=== PATIENT | male | born 1980 | race African-American/Black ===

== ENCOUNTER 2017-04-18 08:34 | Emergency (ER) | payer SELFPAY ==
[~2017-04-18] VITALS: Ht 180.3 cm; Wt 115.0 kg
[2017-04-18 08:42] VITALS: BP 141/70; PULSE 84; RESP 17; TEMP 98.5; O2SAT 100
[2017-04-18 09:13] VITALS: BP 133/81; PULSE 69; RESP 22; O2SAT 98
[2017-04-18 09:35] LABS: AUTOMATED NEUTROPHIL # 5.3 TH/MM3 (1.8-7.7); BASOPHIL # 0.1 TH/MM3 (0-0.2); BASOPHIL % 0.7 % (0.0-2.0); EOSINOPHIL # 0.3 TH/MM3 (0-0.4); EOSINOPHIL % 2.9 % (0.0-4.0); HEMATOCRIT 37.6 % (39.0-51.0); HEMOGLOBIN 12.8 GM/DL (13.0-17.0); LYMPH % 27.1 % (9.0-44.0); LYMPHOCYTE # 2.4 TH/MM3 (1.0-4.8); MEAN CELL VOLUME 91.6 FL (80.0-100.0); MEAN CORPUSCULAR HEMOGLOBIN 31.2 PG (27.0-34.0); MEAN CORPUSCULAR HGB CONC 34.1 % (32.0-36.0); MEAN PLATELET VOLUME 8.5 FL (7.0-11.0); MONO % 9.7 % (0.0-8.0); MONOCYTE # 0.9 TH/MM3 (0-0.9); NEUT % 59.6 % (16.0-70.0); PLATELET COUNT 232 TH/MM3 (150-450); RED BLOOD COUNT 4.11 MIL/MM3 (4.50-5.90); RED CELL DISTRIBUTION WIDTH 12.9 % (11.6-17.2); WHITE BLOOD COUNT 8.9 TH/MM3 (4.0-11.0)
--- NOTE | 2017-04-18 09:35 | RADRPT ---
EXAM DATE/TIME: 04/18/2017 09:15 [place] COMPARISON: No previous studies available for comparison. INDICATIONS : Short of breath, mild chest pain, and cold symptoms for 3 days MEDICAL HISTORY : None. SURGICAL HISTORY : None. ENCOUNTER: Initial ACUITY: 3 days PAIN SCORE: 2/10 LOCATION: Bilateral chest FINDINGS: A single view of the chest demonstrates the lungs to be symmetrically aerated without evidence of mas s, infiltrate or effusion. The cardiomediastinal contours are unremarkable. Osseous structures are intact. CONCLUSION: Normal examination. Moses Garcia MD on April 18, 2017 at 9:34 Board Certified Radiologist. This report was verified electronically.
[2017-04-18 09:56] LABS: BICARBONATE 28.2 MEQ/L (21.0-32.0); BLOOD UREA NITROGEN 7 MG/DL (7-18); CALCIUM 8.5 MG/DL (8.5-10.1); CHLORIDE 106 MEQ/L (98-107); CREATININE 0.75 MG/DL (0.60-1.30); GLOMERULAR FILTRATION RATE 118 ML/MIN (>89); GLUCOSE,RANDOM 207 MG/DL (74-106); SODIUM (NA) 142 MEQ/L (136-145)
[2017-04-18 10:00] LABS: TROPONIN I LESS THAN 0.02 NG/ML (0.02-0.05)
[2017-04-18] MEDS ORDERED: AZIT250T3 PO (10:40)
[2017-04-18] MEDS ORDERED: ALBUAER3 INH (10:40)
[2017-04-18] MEDS ORDERED: PRED20 PO (10:40)
--- NOTE | 2017-04-18 10:41 | PD ---
HPI Chief Complaint: Cardiac Complaint Time Seen by Provider: 09:58 Travel History International Travel<30 days: No Contact w/Intl Traveler<30days: No Traveled to known affect area: No History of Present Illness HPI 36 yo male had to depart work secondary to dyspnea. He reports a history of bronchitis. He reports some chest heaviness. No paresthesia or radiation of discomfort. No fever/chills. Duration about one day. No exertional or pleuritic component. No personal history coronary disease, HTN, DM or HLD. Pt smokes tobacco. PFSH Past Medical History Medical History: Denies Significant Hx Diminished Hearing: No Past Surgical History Surgical History: No Previous Surgery Social History Alcohol Use: Yes (SOCIALLY) Tobacco Use: Yes (1 PPD) Substance Use: Yes (MARIJUANA) Allergies-Medications (Allergen,Severity, Reaction): Coded Allergies: No Known Allergies (Unverified , 04/18/17) Reported Meds & Prescriptions Reported Meds & Active Scripts Active Prednisone 20 Mg Tab 40 Mg PO DAILY 5 Days Take 40 mg (2 tablets) daily for 5 days Proair Hfa 8.5 GM Inh (Albuterol Sulfate) 90 Mcg/Act Aer 2 Puff INH Q4-6H PRN 108 mcg/actuation Azithromycin 250 Mg Tab 250 Mg PO DIRECTED Take 2 tabs (500 mg) on day 1 then 1 tab daily x 4 days. Review of Systems Except as stated in HPI: all other systems reviewed are Neg General / Constitutional: No: Fever Physical Exam Narrative GENERAL: 36 you male resting comfortably on his bed Vital Signs Date Time Temp Pulse Resp B/P (MAP) Pulse Ox O2 Delivery O2 Flow Rate FiO2 04/18/17 11:24 04/18/17 11:05 73 14 135/80 (98) 100 Room Air 04/18/17 09:13 69 22 133/81 (98) 98 Room Air 04/18/17 08:42 98.5 84 17 141/70 (93) 100 SKIN: Warm and dry. HEAD: Atraumatic. Normocephalic. EYES: Pupils equal and round. No scleral icterus. No injection or drainage. ENT: No nasal bleeding or discharge. Mucous membranes pink and moist. NECK: Trachea midline. No JVD. CARDIOVASCULAR: Regular rate and rhythm. RESPIRATORY: No accessory muscle use. Clear to auscultation. Breath sounds equal bilaterally. GASTROINTESTINAL: Abdomen soft, non-tender, nondistended. Hepatic and splenic margins not palpable. MUSCULOSKELETAL: Extremities without clubbing, cyanosis, or edema. No obvious deformities. NEUROLOGICAL: Awake and alert. No obvious cranial nerve deficits. Motor grossly within normal limits. Five out of 5 muscle strength in the arms and legs. Normal speech. PSYCHIATRIC: Appropriate mood and affect; insight and judgment normal. Data Data Last Documented VS Vital Signs Date Time Temp Pulse Resp B/P (MAP) Pulse Ox O2 Delivery O2 Flow Rate FiO2 04/18/17 11:24 04/18/17 11:05 73 14 100 Room Air 04/18/17 08:42 98.5 Orders Orders Electrocardiogram (04/18/17 09:09) Complete Blood Count With Diff (04/18/17 09:09) Basic Metabolic Panel (Bmp) (04/18/17 09:09) Ckmb (Isoenzyme) Profile (04/18/17 09:09) Troponin I (04/18/17 09:09) Chest, Single Ap (04/18/17 09:09) Iv Access Insert/Monitor (04/18/17 09:09) CKMB (04/18/17 09:15) CKMB% (04/18/17 09:15) Ed Discharge Order (04/18/17 10:41) Labs Laboratory Tests Test 04/18/17 09:15 White Blood Count 8.9 TH/MM3 Red Blood Count 4.11 MIL/MM3 Hemoglobin 12.8 GM/DL Hematocrit 37.6 % Mean Corpuscular Volume 91.6 FL Mean Corpuscular Hemoglobin 31.2 PG Mean Corpuscular Hemoglobin Concent 34.1 % Red Cell Distribution Width 12.9 % Platelet Count 232 TH/MM3 Mean Platelet Volume 8.5 FL Neutrophils (%) (Auto) 59.6 % Lymphocytes (%) (Auto) 27.1 % Monocytes (%) (Auto) 9.7 % Eosinophils (%) (Auto) 2.9 % Basophils (%) (Auto) 0.7 % Neutrophils # (Auto) 5.3 TH/MM3 Lymphocytes # (Auto) 2.4 TH/MM3 Monocytes # (Auto) 0.9 TH/MM3 Eosinophils # (Auto) 0.3 TH/MM3 Basophils # (Auto) 0.1 TH/MM3 CBC Comment DIFF FINAL Differential Comment Blood Urea Nitrogen 7 MG/DL Creatinine 0.75 MG/DL Random Glucose 207 MG/DL Calcium Level 8.5 MG/DL Sodium Level 142 MEQ/L Potassium Level 3.7 MEQ/L Chloride Level 106 MEQ/L Carbon Dioxide Level 28.2 MEQ/L Anion Gap 8 MEQ/L Estimat Glomerular Filtration Rate 118 ML/MIN Total Creatine Kinase 115 U/L Creatine Kinase MB LESS THAN 0.5 NG/ML Troponin I LESS THAN 0.02 NG/ML MDM Medical Decision Making Medical Screen Exam Complete: Yes Emergency Medical Condition: Yes Differential Diagnosis pna, anemia, bronchitis, asthma, ifluenza, coronary disease Narrative Course CBC & BMP Diagram 04/18/17 09:15 Calcium Level 8.5 EKG shows sinus rhythm w no evidence ischemia, rate 74 Last Impressions Chest X-Ray 04/18/17 0909 Signed Impressions: Service Date/Time: , April 18, 2017 09:15 - CONCLUSION: Normal examination. Moses Garcia MD At the time of reassessment pt reports he has improved from similar syndromes in the past with use of an inhaler. Bronchitis/asthma treatments as below. Diagnosis Primary Impression: Dyspnea Qualified Codes: R06.00 - Dyspnea, unspecified Additional Impressions: Cough Bronchitis Referrals: Primary Care Physician 2 days Med/Other Pt SpecificInfo: Prescription(s) given Scripts Prednisone (Prednisone) 20 Mg Tab 40 MG PO DAILY for 5 Days, #10 TAB 0 Refills Take 40 mg (2 tablets) daily for 5 days Prov: Trev Carvalho MD 04/18/17 Albuterol 8.5 GM Inh (Proair Hfa 8.5 GM Inh) 90 Mcg/Act Aer 2 PUFF INH Q4-6H Y for SHORTNESS OF BREATH, #1 INHALER 0 Refills 108 mcg/actuation Prov: Trev Carvalho MD 04/18/17 Azithromycin (Azithromycin) 250 Mg Tab 250 MG PO DIRECTED for Infection, #6 TAB 0 Refills Take 2 tabs (500 mg) on day 1 then 1 tab daily x 4 days. Prov: Trev Carvalho MD 04/18/17 Disposition: 01 DISCHARGE HOME Condition: Stable Trev Carvalho MD Apr 18, 2017 10:41
[2017-04-18 11:05] VITALS: BP 135/80; PULSE 73; RESP 14; O2SAT 100
--- NOTE | 2017-04-19 08:53 | EKG ---
Date Performed: 04/18/2017 Time Performed: 09:13:32 PTAGE: 36 years EKG: Sinus rhythm NORMAL ECG NO PREVIOUS TRACING DOCTOR: Halley Kearns Interpretating Date/Time 04/19/2017 08:51:45
== END 2017-04-18 11:25 | disposition home or self-care (01) ==
LOC: NEPE 08:34
DX: R06.00 Dyspnea, unspecified (principal); J40 Bronchitis, not specified as acute or chronic; F17.210 Nicotine dependence, cigarettes, uncomplicated
CPT/HCPCS: 71045; 80048; 82550; 82552; 84484; 85025; 93005; 99285